=== PATIENT | female | born 1975 | race Caucasian/White ===

== ENCOUNTER → 2016-07-03 | Outpatient (CLI) | payer OTHER ==
[~2016-07-03] MED LIST: AZIT250T81 PO
[2016-07-03 11:01] VITALS: BP 119/75
--- NOTE | 2016-07-03 11:01 | Urgent Care T Sheet Gen (E) ---
Intake General Temperature (Fahrenheit): 99.6 Pulse: 95 Blood Pressure Systolic: 119 Blood Pressure Diastolic: 75 Respirations: 18 SPO2: 98 Description of Symptoms Patient presents with illness since Sunday. Started as nasal congestion and PND. Now notes R ear pain, R facial pain and HASSAN. Been taking Mercedes Jelm cold without relief. History of Present Illness Home Meds Active Scripts Azithromycin (Zithromax Z-Art)6 Tab/Pkt [id number] Mg PO SEE INSTRUCTIONS #6 TAB Ref 0 Day One: Take 2 tablets by mouth Days Two-Five: Take 1 tablet by mouth Prov:ELEONORA WEI 07/03/16 Respiratory Constitutional Symptoms: No Fever, Malaise EENTM: Nose Congestion Throat pain Respiratory: No symptoms reported Cardiovascular: No symptoms reported All Other Systems Reviewed Remaining Systems: All other systems reviewed with negative findings Physical Exam Physical Exam General Appearance: WD/WN No apparent distress Eyes, Ears, Nose, Throat Ex: TMs normal (air fluid bubbles) Pharyngeal erythema (cobblestone appearance. PND) Other (red, swollen nasal turbinates with purulent drainage, R worse than L. tender over R maxillary sinus.) Neck Exam: SuppleNo Lymphadenopathy Respiratory Exam: Lungs clear Normal breath sounds Cardiovascular Exam: Regular rate, rhythm Departure Urgent Care Impression Impression: Primary Impression: Sinusitis Qualified Code: J01.00 - Acute maxillary sinusitis, unspecified Departure Disposition: 01 HOME OR SELF-CARE Condition: Stable Referrals: MARY FELIPE MD (PCP) Additional Instructions: I have started the patient on a Zpak for treatment. Suggested she use Flonase once daily for nasal congestion/sinus inflammation Rest. Fluids DC cold meds Return if no better Patient understands DC instructions. All questions were answered. Scripts Azithromycin (Zithromax Z-Art)6 Tab/Pkt [id number] Mg PO SEE INSTRUCTIONS #6 TAB Ref 0 Day One: Take 2 tablets by mouth Days Two-Five: Take 1 tablet by mouth Prov:ELEONORA WEI 07/03/16 End of report . ELEONORA WEI July 03, 2016 10:43
== END ==
LOC: MHUC 10:24
PROVIDERS: ATTEND Physician Assistant
DX: J01.00 Acute maxillary sinusitis, unspecified (principal)
CPT/HCPCS: 99213